=== PATIENT | female | born 1955 | race Caucasian/White ===

== ENCOUNTER 2017-01-25 09:35 | Emergency (ER) | payer OTHER ==
--- NOTE | 2017-01-25 10:29 | ER NURSING DOCUMENTATION ---
Nurse's Notes [facility] Name:Allison Mazariegos Age:61 yrs Sex:Female :1955 Arrival Date:01/25/2017 Time:09:35 Bed1 Private MD: Diagnosis:Finger Laceration Presentation: 01/25 09:41 Acuity: CHUY 3 lp 09:47 Presenting complaint: Patient states: CUT LEFT 5TH DIGIT ON A KNIFE WHILE SLICING lc ONIONS. ROM INTACT, NO OTHER INJURY. Transition of care: Home. Notified ED Physician of patient's arrival and CC. 09:47 Method Of Arrival: Private Vehicle Triage Assessment: 09:52 General: Appears in no apparent distress, Behavior is cooperative, pleasant. Pain: lc Complains of pain in left hand Pain At worst was 7 out of 10 on a pain scale. Quality of pain is described as throbbing, Pain began 1 hour ago. Neuro: Level of Consciousness is awake, alert, Oriented to person, place, time, event. Musculoskeletal: Circulation, motion, and sensation intact Capillary refill < 3 seconds Range of motion intact in all extremities. Injury Description: Laceration sustained to palmar aspect of distal phalanx of left little finger is clean, 0.5 to 2.5 cm long, was sustained 30-60 minutes ago. is bleeding a small amount. Historical: - Allergies: Codeine; - Home Meds: 1. None - PMHx: None; - PSHx: THUMB; - Tetanus: < 10 years. - Ebola Screening: : Patient negative for fever greater than or equal to 101.5 degrees Fahrenheit, and additional compatible Ebola Virus Disease symptoms. Patient denies exposure to infectious person. Patient denies travel to an Ebola-affected area in the 21 days before illness onset. . - Immunization history: Flu Vaccine < 1 year. - Social history: Smoking status: Patient states was never smoker of tobacco. Screenin:55 Infectious Disease Risk None. Abuse screen: Denies threats or abuse. Denies injuries lc from another. Nutritional screening: No deficits noted. Assessment: 09:55 See Triage Assessment done by same RN. Vital Signs: 09:53 BP 130 / 52; Pulse 98; Resp 16; Temp 98.1; Pulse Ox 95% on R/A; Weight 63.5 kg; Height lc 5 ft. 2 in. (157.48 cm); Pain 7/10; 10:28 Pain 0/10; lc 09:53 Body Mass Index 25.61 (63.50 kg, 157.48 cm) ED Course: 09:37 Patient arrived in ED. ds 09:40 Marcial Cannon MD is Attending Physician. aileen 09:41 Triage completed. lp 09:47 Ginny Tolbert, RN is Primary Nurse. 09:56 Valuables Remains with patient Patient has correct armband on for positive lc identification. Bed in low position. Call light in reach. 10:27 Assist Provider Assist provider with laceration repair that was 2.5 cm. or less using lc sutures. Set up tray. Performed by Marcial Cannon MD Dressed with band aid, Neosporin, TUBE GAUZE Patient tolerated well. Wound care was Irrigation Normal Saline Patient tolerated well. Administered Medications: No medications were administered Outcome: 10:19 Discharge ordered by . 10:28 Discharged to home ambulatory. 10:28 Condition: good 10:28 Discharge Assessment: Patient awake, alert and oriented x 3. No cognitive and/or functional deficits noted. Patient verbalized understanding of disposition instructions. 10:28 Discharge instructions given to patient, Instructed on discharge instructions, follow up and referral plans. wound care, Demonstrated understanding of instructions. 10:29 Patient left the ED. 01/26 10:59 Discharge F/U Call: Unable to reach: no answer st Signatures: Monik Reilly RN RN st Coleman, Linda, RN Mehnaz Cartagena RN RN lp Srot, Melvi, Reg Reg Marcial Fisher MD MD jm
--- NOTE | 2017-01-25 10:29 | ER PHYSICIAN DOCUMENTATION ---
Physician Documentation [facility] Name:Allison Mazariegos Age:61 yrs Sex:Female :1955 Arrival Date:01/25/2017 Time:09:35 Bed1 Private MD: Marcial Fuller Disposition: 01/25/17 10:19 Discharged to Home/Self Care. Impression: Finger Laceration. - Condition is Good. - Discharge Instructions: FINGER LACERATION - LACERATION, Hand. - Medical Reconciliation form form. - Follow up: Emergency Department; When: 1 week; Reason: Staple/Suture removal. - Problem is new. - Symptoms have improved. HPI: 01/25 10:46 This 61 yrs old Female presents to ER via Private Vehicle with complaints of jm Finger Injury - LEFT PINKY. 10:46 The patient or guardian reports injury, a laceration. The complaints affect the palmar jm aspect of distal phalanx of left little finger. Context: resulted from a penetrating injury, by a knife. Onset: The symptom(s)/episode began/occurred just prior to arrival. Historical: - Allergies: Codeine; - Home Meds: 1. None - PMHx: None; - PSHx: THUMB; - Tetanus: < 10 years. - Ebola Screening: : Patient negative for fever greater than or equal to 101.5 degrees Fahrenheit, and additional compatible Ebola Virus Disease symptoms. Patient denies exposure to infectious person. Patient denies travel to an Ebola-affected area in the 21 days before illness onset. . - Immunization history: Flu Vaccine < 1 year. - Social history: Smoking status: Patient states was never smoker of tobacco. ROS: 10:46 Constitutional: Negative for fatigue, fever. jm 10:46 MS/extremity: Positive for laceration. 10:46 Skin: Positive for laceration(s). Exam: 10:46 Constitutional: The patient appears alert, awake, comfortable. jm 10:46 Musculoskeletal/extremity: Extremities: grossly normal except: ROM: intact in all extremities, Tendon exam: specific tendon testing normal through active and passive range of motion 10:46 Skin: injury, laceration(s), the wound is approximately 1 cm(s), of the palmar aspect of distal phalanx of left little finger. 10:46 Neuro: Motor: is normal, Sensation: is normal. Vital Signs: 09:53 BP 130 / 52; Pulse 98; Resp 16; Temp 98.1; Pulse Ox 95% on R/A; Weight 63.5 kg; Height lc 5 ft. 2 in. (157.48 cm); Pain 7/10; 10:28 Pain 0/10; lc 09:53 Body Mass Index 25.61 (63.50 kg, 157.48 cm) lc Laceration: 10:46 Wound Repair of 1cm ( 0.4in ) subcutaneous laceration to palmar aspect of distal jm phalanx of left little finger. Distal neuro/vascular/tendon intact. Anesthesia: Digital block administered with 10 mls of 2% lidocaine. Wound prep: Wound irrigation by nurse. Skin closed with 4 5-0 Ethilon using Interrupted sutures. Dressed with tube gauze. Patient tolerated well. MDM: 09:40 Patient medically screened. 10:46 Differential diagnosis: laceration. Data reviewed: vital signs, nurses notes, and as a result, I will discharge patient. Counseling: I had a detailed discussion with the patient and/or guardian regarding: the historical points, exam findings, and any diagnostic results supporting the discharge/admit diagnosis, the need for outpatient follow up, with the patient's primary care provider. Dispensed Medications: No medications were administered Signatures: Ginny Tolbert RN RN lc Meyer, John, MD MD jm
== END 2017-01-25 10:29 | disposition home or self-care (01) ==
LOC: ER 09:35
DX: S61.217A Laceration without foreign body of left little finger without damage to nail, initial encounter (principal); W26.0XXA Contact with knife, initial encounter; Y93.G1 Activity, food preparation and clean up
CPT/HCPCS: 12041; 99283

== ENCOUNTER 2017-02-01 10:38 | Emergency (ER) | payer OTHER ==
--- NOTE | 2017-02-01 11:25 | ER NURSING DOCUMENTATION ---
Nurse's Notes [facility] Name:Allison Mazariegos Age:61 yrs Sex:Female :1955 Arrival Date:02/01/2017 Time:10:38 Bed2 Private MD: Diagnosis:Suture Removal Presentation: 02/01 10:43 Presenting complaint: Patient states: Suture removal. Transition of care: Home. lpr 10:43 Method Of Arrival: Private Vehicle lpr 10:43 Acuity: CHUY 5 lpr 11:00 Notified ED Physician of patient's arrival and CC Dr. Miranda notified. asked Dr Miranda to lpr look at finger after suture removal due to patient stating that it is novelty twister tender. Suture line has some mild erythema. Triage Assessment: 10:43 General: Appears in no apparent distress, comfortable, Behavior is cooperative. Pain:. lpr 10:43 Derm: Skin two sutures still intact and patient states that two other sutures fell out lpr prior to coming in today. Historical: - Allergies: Codeine; - Home Meds: 1. None - PMHx: NONE; Finger Laceration (January 25, 2017); - PSHx: THUMB; - Tetanus: < 10 years. - Ebola Screening: : Patient negative for fever greater than or equal to 101.5 degrees Fahrenheit, and additional compatible Ebola Virus Disease symptoms. Patient denies exposure to infectious person. Patient denies travel to an Ebola-affected area in the 21 days before illness onset. No symptoms or risks identified at this time. . Vital Signs: 10:52 Temp 99.0(TE); lpr ED Course: 10:39 Patient arrived in ED. ds 10:43 Triage completed. lpr 10:45 Removed sutures from dorsal aspect of middle phalanx of left little finger and palmar lpr aspect of middle phalanx of left little finger Suture site is reddened Patient tolerated well. 11:23 Shreyas Miranda MD is Attending Physician. lpr Administered Medications: No medications were administered Outcome: 11:23 Discharge ordered by . lpr 11:23 Patient left the ED. lpr 11:23 Discharged to home ambulatory. lpr 11:23 Condition: good 11:23 Instructed on discharge instructions, follow up and referral plans. Demonstrated understanding of instructions. 11:23 No charge visit due to suture removal. 02/02 10:35 Discharge F/U Call: Unable to reach: no answer lp Signatures: Mehnaz Gao, ANA RN lp Srot, Melvi, Reg Reg ds Soco Camara, RN RN lpr
== END 2017-02-01 11:24 | disposition home or self-care (01) ==
LOC: ER 10:38
DX: Z48.02 Encounter for removal of sutures (principal); S61.217D Laceration without foreign body of left little finger without damage to nail, subsequent encounter